=== PATIENT | female | born 1990 | race Caucasian/White ===

== ENCOUNTER 2024-04-23 20:11 | Emergency (ER) | payer SELFPAY ==
[~2024-04-23] VITALS: Ht 167.6 cm; Wt 96.0 kg
[2024-04-23 20:27] VITALS: BP 96/63; PULSE 83; RESP 18; TEMP 98.4; O2SAT 96
== END 2024-04-23 20:48 | disposition left against medical advice (07) ==
LOC: ER 20:11
DX: F10.129 Alcohol abuse with intoxication, unspecified (principal); Z53.21 Procedure and treatment not carried out due to patient leaving prior to being seen by health care provider; Y90.9 Presence of alcohol in blood, level not specified

== ENCOUNTER 2024-05-02 17:47 | Emergency (ER) | payer OTHER ==
[~2024-05-02] VITALS: Ht 175.3 cm; Wt 116.0 kg
[2024-05-02 17:50] VITALS: TEMP 98.1; O2SAT 97
[2024-05-02] MEDS: LEVETIRACETAM 500MG TABLET PO ONE (18:17)
[2024-05-02] MEDS: CHLORDIAZEPOXIDE 25MG CAPSULE PO ONE (18:17)
[2024-05-02 18:22] LABS: BASOPHILS % 0.6 % (0.0-2.0); EOSINOPHILS % 0.1 % (0.0-5.0); HEMATOCRIT. 37.3 % (36.0-48.0); HEMOGLOBIN. 12.8 g/dL (12.0-16.0); LYMPHOCYTES % 23.7 % (20.0-50.0); MEAN CORPUSCULAR HEMOGLOBIN 32.2 pg (28.0-32.0); MEAN CORPUSCULAR HGB CONC 34.3 g/dL (31.0-37.0); MEAN CORPUSCULAR VOLUME 93.9 fL (81.0-99.0); MEAN PLATELET VOLUME 8.9 fl (7.4-10.4); NEUTROPHILS % 68.6 % (40.0-76.0); PLATELET 126 x1000/uL (130-400); RED BLOOD CELL COUNT 3.98 mill/uL (4.2-5.4); WHITE BLOOD COUNT 5.6 x1000/uL (4.5-11.0)
[2024-05-02 18:28] LABS: CHLORIDE 101 mEq/L (98-107); POTASSIUM 3.6 mEq/L (3.5-5.1); SODIUM 135 mEq/L (136-145)
[2024-05-02 18:29] LABS: CARBON DIOXIDE 28 mEq/L (21-32)
[2024-05-02 18:31] LABS: HCG SCREEN NEGATIVE
[2024-05-02 18:34] LABS: CREATININE 0.6 mg/dL (0.6-1.0); GLUCOSE 115 mg/dL (70-105)
[2024-05-02 18:36] LABS: ALANINE AMINOTRANSFERASE 37 IU/L (10-49); ALBUMIN 4.2 g/dL (3.2-4.8); ASPARTATE AMINOTRANSFERASE 43 IU/L (<34); ETHANOL BLOOD < 10 mg/dL (<10); UREA NITROGEN BLOOD < 5 mg/dL (9-23)
[2024-05-02 18:37] LABS: BILIRUBIN DIRECT 0.3 mg/dL (<=3.0); BILIRUBIN TOTAL 1.4 mg/dL (0.1-1.0); PROTEIN TOTAL 7.6 g/dL (6.0-8.3)
[2024-05-02] MEDS: IBUPROFEN 400MG TABLET PO ONE (19:05)
[2024-05-02] MEDS: ACETAMINOPHEN 325MG TABLET PO ONE (19:05)
[2024-05-02 20:56] VITALS: BP 128/76; PULSE 80; RESP 18
== END 2024-05-02 20:58 | disposition home or self-care (01) ==
LOC: ER 17:47
DX: S93.402A Sprain of unspecified ligament of left ankle, initial encounter (principal); F10.239 Alcohol dependence with withdrawal, unspecified; X58.XXXA Exposure to other specified factors, initial encounter; Y93.89 Activity, other specified; Y92.89 Other specified places as the place of occurrence of the external cause; Y99.8 Other external cause status; Y90.0 Blood alcohol level of less than 20 mg/100 ml
CPT/HCPCS: 80076; 80048; 80320; 84703; 85025; 36415; 73610; 73630; 29515; 99284; Z7610 ×5; G0480